=== PATIENT | male | born 1995 | race Caucasian/White ===

== ENCOUNTER 2021-07-25 01:07 | Emergency (ER) | payer OTHER | END 2021-07-25 02:58 | disposition left against medical advice (07) | LOC: JD.ED 01:07 | DX: S40.011A Contusion of right shoulder, initial encounter (principal); Z72.0 Tobacco use; W23.1XXA Caught, crushed, jammed, or pinched between stationary objects, initial encounter | CPT/HCPCS: 73030-26-RT; 73030-RT; 99283-25 ==